=== PATIENT | male | born 1940 | race Caucasian/White ===

== ENCOUNTER 2020-08-31 20:12 | Inpatient (IN) | payer MEDICARE, OTHER ==
[~2020-08-31] VITALS: Ht 175.3 cm; Wt 103.1 kg
[~2020-08-31 20:12] MED LIST: ACETAMINOPHEN-1 EAC1 PO; AMIODARONE HCL200 MG PO; AMIODARONE HCL400 MG PO; ARICEPT5 MG PO; ASPIR 8181 MG PO; ATORVASTATIN CA20 MG PO; CETIRIZINE HCL10 MG PO; CLOPIDOGREL75 MG PO; DOXYCYCLINE HY100 M2 PO; ELIQUIS 5 MG TAB5 MG PO; GLIPIZIDE ER10 MG PO; GLIPIZIDE ER5 MG PO; KLOR-CON M1010 MEQ PO; LASIX 40 MG TAB40 MG PO; LISINOPRIL20 MG PO; LISINOPRIL5 MG PO; LOPID TAB 600600 MG PO; LOPRESSOR 25 MG25 MG PO; METFORMIN HCL500 M2 PO; METOPROLOL SUCC25 MG PO; NITROGLYCERIN0.4 MG SL; ROBITUSSIN DM UD5 ML PO; ZESTRIL5 MG PO
[2020-08-31 21:15] LABS: HEMOGLOBIN 10.8 gm/dl (14.0-17.5); RED BLOOD COUNT 2.88 M/UL (4.20-5.50)
[2020-09-01 04:57] LABS: HEMOGLOBIN 10.4 gm/dl (14.0-17.5); RED BLOOD COUNT 2.76 M/UL (4.20-5.50)
[2020-09-01] MEDS ORDERED: LEVOTHYROXINE25 MC1 PO (05:13)
[2020-09-02 06:16] LABS: HEMOGLOBIN 10.4 gm/dl (14.0-17.5); RED BLOOD COUNT 2.71 M/UL (4.20-5.50); WHITE BLOOD COUNT 4.3 K/UL (4.5-11.0)
[2020-09-03 03:37] LABS: HEMOGLOBIN 10.6 gm/dl (14.0-17.5); RED BLOOD COUNT 2.82 M/UL (4.20-5.50)
[2020-09-03 03:38] LABS: WHITE BLOOD COUNT 5.7 K/UL (4.5-11.0)
[2020-09-03 03:55] LABS: BUN/CREATININE RATIO 18 (0-10)
[2020-09-04 02:43] LABS: HEMOGLOBIN 10.3 gm/dl (14.0-17.5); RED BLOOD COUNT 2.72 M/UL (4.20-5.50); WHITE BLOOD COUNT 5.6 K/UL (4.5-11.0)
[2020-09-06 03:41] LABS: HEMOGLOBIN 9.6 gm/dl (14.0-17.5); RED BLOOD COUNT 2.51 M/UL (4.20-5.50); WHITE BLOOD COUNT 5.5 K/UL (4.5-11.0)
[2020-09-09 02:30] LABS: HEMOGLOBIN 9.4 gm/dl (14.0-17.5); RED BLOOD COUNT 2.46 M/UL (4.20-5.50); WHITE BLOOD COUNT 5.6 K/UL (4.5-11.0)
[2020-09-09 21:18] LABS: HEMOGLOBIN 9.7 gm/dl (14.0-17.5)
[2020-09-10 03:26] LABS: HEMOGLOBIN 9.4 gm/dl (14.0-17.5)
[2020-09-10] MEDS ORDERED: IPRAT-ALBUT 0.5-3 ML NEB (08:27)
[2020-09-10] MEDS ORDERED: KLOR-CON M1010 MEQ PO (08:27)
[2020-09-10] MEDS ORDERED: ASPIRIN EC81 MG PO (08:27)
[2020-09-10] MEDS ORDERED: ATORVASTATIN CA10 MG PO (08:27)
[2020-09-10] MEDS ORDERED: MELATONIN3 MG PO (08:27)
[2020-09-10] MEDS ORDERED: LASIX 40 MG TAB40 MG PO (08:27)
[2020-09-10] MEDS ORDERED: PROTONIX 40 MG40 M1 PO (08:27)
[2020-09-10] MEDS ORDERED: HUMALOG 10100 UNITS/ SC (08:29)
[2020-09-11 06:02] LABS: HEMOGLOBIN 9.6 gm/dl (14.0-17.5); RED BLOOD COUNT 2.53 M/UL (4.20-5.50)
[2020-09-11 06:14] LABS: WHITE BLOOD COUNT 7.2 K/UL (4.5-11.0)
[2020-09-11 06:26] LABS: BUN/CREATININE RATIO 23 (0-10)
[2020-09-11] MEDS ORDERED: ACETAMINOPHEN-1 EAC1 PO (10:51)
== END 2020-09-11 18:18 | DRG 246 ==
LOC: ER1 20:12 → CDU 22:22 → MED SURG 4 09-01 00:02 → PROG CARE 09-01 00:02 → MED SURG 4 09-06 12:28
PROVIDERS: Family Medicine; Internal Medicine; Internal Medicine Interventional Cardiology; Physician Assistant; ADMIT Internal Medicine
PROC: 4A023N7 Measurement of Cardiac Sampling and Pressure, Left Heart, Percutaneous Approach (ICD-10-PCS; principal; 2020-09-02)
PROC: 027036Z Dilation of Coronary Artery, One Artery with Three Drug-eluting Intraluminal Devices, Percutaneous Approach (ICD-10-PCS; 2020-09-02)
PROC: B2111ZZ Fluoroscopy of Multiple Coronary Arteries using Low Osmolar Contrast (ICD-10-PCS; 2020-09-02)
PROC: B2151ZZ Fluoroscopy of Left Heart using Low Osmolar Contrast (ICD-10-PCS; 2020-09-02)
DX: T82.855A Stenosis of coronary artery stent, initial encounter (principal); I21.4 Non-ST elevation (NSTEMI) myocardial infarction; J18.9 Pneumonia, unspecified organism; I50.23 Acute on chronic systolic (congestive) heart failure; J96.01 Acute respiratory failure with hypoxia; N17.9 Acute kidney failure, unspecified; E87.2 Acidosis; I13.0 Hypertensive heart and chronic kidney disease with heart failure and stage 1 through stage 4 chronic kidney disease, or unspecified chronic kidney disease; F03.90 Unspecified dementia, unspecified severity, without behavioral disturbance, psychotic disturbance, mood disturbance, and anxiety; Z20.828 Contact with and (suspected) exposure to other viral communicable diseases; Z79.01 Long term (current) use of anticoagulants; I25.10 Atherosclerotic heart disease of native coronary artery without angina pectoris; H91.90 Unspecified hearing loss, unspecified ear; Z95.5 Presence of coronary angioplasty implant and graft; Z96.659 Presence of unspecified artificial knee joint; Z88.0 Allergy status to penicillin; I48.0 Paroxysmal atrial fibrillation; E03.9 Hypothyroidism, unspecified; D64.89 Other specified anemias; D69.6 Thrombocytopenia, unspecified; I27.20 Pulmonary hypertension, unspecified; I25.5 Ischemic cardiomyopathy; E87.70 Fluid overload, unspecified; Z79.899 Other long term (current) drug therapy; Z98.42 Cataract extraction status, left eye; Z98.41 Cataract extraction status, right eye; Z96.1 Presence of intraocular lens; F17.220 Nicotine dependence, chewing tobacco, uncomplicated; M19.90 Unspecified osteoarthritis, unspecified site; Z96.653 Presence of artificial knee joint, bilateral; Z82.49 Family history of ischemic heart disease and other diseases of the circulatory system; Z79.84 Long term (current) use of oral hypoglycemic drugs; Z79.891 Long term (current) use of opiate analgesic; Y71.1 Therapeutic (nonsurgical) and rehabilitative cardiovascular devices associated with adverse incidents; E11.22 Type 2 diabetes mellitus with diabetic chronic kidney disease; N18.30 Chronic kidney disease, stage 3 unspecified
CPT/HCPCS: ECHO; 36415; 71045; 80048; 80053; 82550; 82553; 82962; 83605; 83735; 83874; 84484; 85014; 85018; 85025; 85027; 85347; 85610; 85730; 86140; 87040; 87081; 87880; 92610; 93005; 93306; 94640; 94664; 94760; 96365; 96366; 96367; 96368; 96375; 96376; 97110-GP-CQ; 97116; 97162; 97166; 97530; 97530-GP-CQ; 99152; 99153; 99285; C1725; C1760; C1769; C1874; C1887; C9113; C9600; C9601; G0378; J0456; J0696; J1644; J1940; J2250; J2405; J7030; Q9965; U0002